=== PATIENT | male | born 1995 | race American Indian/Alaskan Native ===

== ENCOUNTER 2020-05-18 00:34 | Emergency (ER) | payer SELFPAY | END 2020-05-18 01:00 | disposition left against medical advice (07) | LOC: ED 00:34 | DX: R41.82 Altered mental status, unspecified (principal); Z53.21 Procedure and treatment not carried out due to patient leaving prior to being seen by health care provider ==

== ENCOUNTER 2021-08-07 16:15 | Emergency (ER) | payer SELFPAY ==
--- NOTE | 2021-08-07 18:47 | Emergency Department Report ---
ED Psych HPI - General Chief Complaint: Psych Stated Complaint: ITCHING/JUMPING Time Seen by Provider: 08/07/21 17:53 Source: patient Mode of arrival: Ambulatory - History of Present Illness Initial Comments: Chief complaint: "My father brought me. My skin is crawling." HPI: This is a 25-year-old male with history of bipolar disorder, schizophrenia who presents with auditory and tactile hallucinations. For the past several days he has heard voices. He feels as if something some object or some creatures are crawling all over him. He reports having a seizure 2 days ago. Seizure was unwitnessed. He is unable to describe circumstances of the seizure. Next He has not been on medication for bipolar disorder schizophrenia. He denies recreational drug use. He denies suicidal or homicidal ideation. MD Complaint: other (Auditory and tactile hallucinations) -: days(s) (Several days) Associated Psychiatric Symptoms: racing thoughts History of same: Yes Quality: constant Improves With: none Worsens With: none Context: not taking psychiatric Associated Symptoms: denies other symptoms Treatments Prior to Arrival: none - Related Data Allergies Allergy/AdvReac Type Severity Reaction Status Date / Time No Known Allergies Allergy Verified 08/07/21 17:17 ED Review of Systems ROS: Stated complaint: ITCHING/JUMPING Other details as noted in HPI Comment: All other systems reviewed and negative Constitutional: denies: chills, fever, malaise Respiratory: denies: cough, shortness of breath Cardiovascular: denies: chest pain Gastrointestinal: denies: abdominal pain, nausea, vomiting Psychiatric: auditory hallucinations. denies: homicidal thoughts, suicidal thoughts ED Past Medical Hx - Past Medical History Previous Medical History?: Yes Hx Psychiatric Treatment: (bipolar, schizo) - Surgical History Past Surgical History?: No - Social History Smoking Status: Current Every Day Smoker Substance Use Type: None ED Physical Exam - General Limitations: No Limitations General appearance: alert, in no apparent distress - Head Head exam: Present: atraumatic, normocephalic - Eye Eye exam: Present: normal appearance - ENT ENT exam: Present: mucous membranes moist - Neck Neck exam: Present: normal inspection, full ROM - Respiratory Respiratory exam: Present: normal lung sounds bilaterally. Absent: respiratory distress, wheezes, rales, rhonchi - Cardiovascular Cardiovascular Exam: Present: regular rate, normal rhythm, normal heart sounds. Absent: systolic murmur, diastolic murmur, rubs, gallop - GI/Abdominal GI/Abdominal exam: Present: soft, normal bowel sounds. Absent: distended, tenderness, guarding, rebound - Rectal Rectal exam: Present: deferred - Extremities Exam Extremities exam: Present: normal inspection - Back Exam Back exam: Present: normal inspection - Neurological Exam Neurological exam: Present: alert, oriented X3 - Psychiatric Psychiatric exam: Present: depressed, flat affect - Skin Skin exam: Present: warm, dry, intact, normal color. Absent: rash ED Course Vital Signs 08/07/21 08/07/21 17:12 17:15 Temperature 97.9 F Pulse Rate 95 H 81 Respiratory 16 Rate Blood Pressure 117/84 O2 Sat by Pulse 96 98 Oximetry ED Medical Decision Making - Lab Data Result diagrams: 08/07/21 18:19 08/07/21 18:19 Laboratory Results - last 24 hr 08/07/21 08/07/21 08/07/21 18:19 18:19 18:19 WBC 5.8 RBC 5.22 H Hgb 16.8 H Hct 50.1 H MCV 96 H MCH 32 MCHC 33 RDW 13.8 Plt Count 344 Lymph % (Auto) 29.7 [place] % (Auto) 6.3 Eos % (Auto) 1.1 Baso % (Auto) 0.8 Lymph # (Auto) 1.7 [place] # (Auto) 0.4 Eos # (Auto) 0.1 Baso # (Auto) 0.0 Seg Neutrophils % 62.1 Seg Neutrophils # 3.6 Sodium 140 Potassium 4.0 Chloride 102.7 Carbon Dioxide 18 L Anion Gap 23 BUN 10 Creatinine 0.7 L Estimated GFR > 60 BUN/Creatinine Ratio 14 Glucose 84 Calcium 9.8 Total Bilirubin 0.30 AST 38 ALT 36 Alkaline Phosphatase 85 Total Protein 8.4 H Albumin 5.0 Albumin/Globulin Ratio 1.5 Urine Color Urine Turbidity Urine pH Ur Specific [place] Urine Protein Urine Glucose (UA) Urine Ketones Urine Blood Urine Nitrite Urine Bilirubin Urine Urobilinogen Ur Leukocyte Esterase Urine WBC (Auto) Urine RBC (Auto) U Epithel Cells (Auto) Salicylates < 0.3 L Urine Opiates Screen Urine Methadone Screen Acetaminophen Ur Barbiturates Screen Ur Phencyclidine Scrn Ur Amphetamines Screen U Benzodiazepines Scrn Urine Cocaine Screen U Marijuana (THC) Screen Drugs of Abuse Note Plasma/Serum Alcohol 08/07/21 08/07/21 08/07/21 18:19 18:19 Unknown WBC RBC Hgb Hct MCV MCH MCHC RDW Plt Count Lymph % (Auto) [place] % (Auto) Eos % (Auto) Baso % (Auto) Lymph # (Auto) [place] # (Auto) Eos # (Auto) Baso # (Auto) Seg Neutrophils % Seg Neutrophils # Sodium Potassium Chloride Carbon Dioxide Anion Gap BUN Creatinine Estimated GFR BUN/Creatinine Ratio Glucose Calcium Total Bilirubin AST ALT Alkaline Phosphatase Total Protein Albumin Albumin/Globulin Ratio Urine Color Straw Urine Turbidity Clear Urine pH 5.0 Ur Specific [place] 1.004 Urine Protein <15 mg/dl Urine Glucose (UA) Neg Urine Ketones Neg Urine Blood Mod Urine Nitrite Neg Urine Bilirubin Neg Urine Urobilinogen < 2.0 Ur Leukocyte Esterase Neg Urine WBC (Auto) 1.0 Urine RBC (Auto) 2.0 U Epithel Cells (Auto) 1.0 Salicylates Urine Opiates Screen Urine Methadone Screen Acetaminophen 5.0 L Ur Barbiturates Screen Ur Phencyclidine Scrn Ur Amphetamines Screen U Benzodiazepines Scrn Urine Cocaine Screen U Marijuana (THC) Screen Drugs of Abuse Note Plasma/Serum Alcohol 0.20 H 08/07/21 Unknown WBC RBC Hgb Hct MCV MCH MCHC RDW Plt Count Lymph % (Auto) [place] % (Auto) Eos % (Auto) Baso % (Auto) Lymph # (Auto) [place] # (Auto) Eos # (Auto) Baso # (Auto) Seg Neutrophils % Seg Neutrophils # Sodium Potassium Chloride Carbon Dioxide Anion Gap BUN Creatinine Estimated GFR BUN/Creatinine Ratio Glucose Calcium Total Bilirubin AST ALT Alkaline Phosphatase Total Protein Albumin Albumin/Globulin Ratio Urine Color Urine Turbidity Urine pH Ur Specific [place] Urine Protein Urine Glucose (UA) Urine Ketones Urine Blood Urine Nitrite Urine Bilirubin Urine Urobilinogen Ur Leukocyte Esterase Urine WBC (Auto) Urine RBC (Auto) U Epithel Cells (Auto) Salicylates Urine Opiates Screen Negative Urine Methadone Screen Negative Acetaminophen Ur Barbiturates Screen Negative Ur Phencyclidine Scrn Negative Ur Amphetamines Screen Negative U Benzodiazepines Scrn Negative Urine Cocaine Screen Negative U Marijuana (THC) Screen Negative Drugs of Abuse Note Disclamer Plasma/Serum Alcohol - Medical Decision Making This is 25-year-old male history of bipolar disorder, schizophrenia who presents with auditory and tactile hallucinations. He denies suicidal homicidal ideation. 1. Acute psychosis: He is medically clear for psychiatric care. Awaiting treatment recommendations by psychiatric team. 2. Reported seizure: No previous history of seizure. Patient is currently neurologic intact. Low risk for PE. Must consider syncope. PERC negative. No evidence of traumatic injury. No indication of cardiac structural disease. No further evaluation required at this time. Vital signs are stable. 3. Elevated blood alcohol level. Patient alert and oriented x4. Stable gait. No indication of intoxication. No tachycardia or tremors to indicate withdrawal. Must consider alcohol dependence with reported seizure. CIWA score ordered. CBC CMP serum toxicology urinalysis urine tox screen otherwise unremarkable Critical care attestation.: If time is entered above; I have spent that time in minutes in the direct care of this critically ill patient, excluding procedure time. ED Disposition Clinical Impression: Acute psychosis, Bipolar disorder, Schizophrenia Disposition: 30 STILL A PATIENT Is pt being admited?: No Does the pt Need Aspirin: No Condition: Stable Referrals: PRIMARY CARE, [Primary Care Provider] - 3-5 Days
[2021-08-07 19:13] LABS: Alanine Aminotransferase 36 units/L (7-56); Blood Urea Nitrogen 10 mg/dL (9-20); Calcium 9.8 mg/dL (8.4-10.2); Hemolysis Index 20
[2021-08-07 19:19] LABS: BUN/Creatinine Ratio 14; Basophils % (Auto) 0.8 % (0.0-1.8); Eosinophils # (Auto) 0.1 K/mm3 (0.0-0.4); Eosinophils % (Auto) 1.1 % (0.0-4.3); Hematocrit 50.1 % (35.5-45.6); Hemoglobin 16.8 gm/dl (11.8-15.2); Lymphocytes # (Auto) 1.7 K/mm3 (1.2-5.4); Lymphocytes % (Auto) 29.7 % (13.4-35.0); Mean Corpuscular HGB Conc 33 % (32-34); Mean Corpuscular Volume 96 fl (84-94); Monocytes # (Auto) 0.4 K/mm3 (0.0-0.8); Monocytes % (Auto) 6.3 % (0.0-7.3); Platelet Count 344 K/mm3 (140-440); Red Blood Count 5.22 M/mm3 (3.65-5.03); Red Cell Distribution Width 13.8 % (13.2-15.2)
[2021-08-07 20:10] LABS: Bilirubin,Urine NEG (Negative); Blood,Urine MOD (Negative); Color,Urine Straw (Yellow); Protein,Urine <15 mg/dL mg/dL (Negative); Urobilinogen,Urine < 2.0 mg/dL (<2.0)
[2021-08-07 20:15] LABS: Amphetamine Screen,Urine Negative; Benzodiazepines Screen,Urine Negative; Cannabinoid Screen,Urine Negative; Cocaine Screen,Urine Negative; Methadone Screen,Urine Negative; Opiate Screen,Urine Negative
[2021-08-07] MEDS ORDERED: chlordiazePOXIDE 25 MG CAP PO PRN (21:42)
--- NOTE | 2021-08-08 10:51 | Consultation ---
History of Present Illness - Reason for Consult Consult date: 08/08/21 Reason for consult: tactile hallucinations - History of Present Psychiatric Illness The patient was seen today. He is a/ o x 3. He is calm and cooperative. He is polite. He says "better" when I ask him how he is feeling. The patient says he had a seizure and his skin was crawling. He denies feeling this at present. He says he has a history of bipolar and schizophrenia. The patient says "but I've been off of meds for about 2 years and I was fine." He says he lives with his father. 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 The patient denies any illicit drug use, alcohol or nicotine. He denies SI/HI. REVIEW OF SYSTEMS Constitutional: Negative for weight loss ENT: Negative for stridor Respiratory: Negative for cough or hemoptysis All other systems reviewed and are negative MENTAL STATUS EXAMINATION General Appearance and Behavior: Age appropriate, good hygiene, wearing appropriate clothes. calm, cooperative, polite Cooperation: Cooperative Psychomotor Behavior: Psychomotor normal Mood: better Affect and affective range: congruent with stated mood Thought Process: goal oriented Thought Content: None Speech: Normal tone and pace Suicidal Ideation: Denies Homicidal Ideation: Denies Hallucinations: Denies Delusions: Denies Impulse Control: Limited Insight and Judgment: Limited insight and fair judgment Memory: Limited Attention: distracted Orientation: a/o x 3 Assessment (1) Hx of bipolar and schizophrenia Current Visit: Yes Status: Acute Treatment Plan No meds prescribed at this time Medical: Per primary Disposition: Do not recommend acute psychiatric inpatient treatment Will sign off. Thanks Case staffed with Dr. Clarke Medications and Allergies Allergies Allergy/AdvReac Type Severity Reaction Status Date / Time No Known Allergies Allergy Verified 08/07/21 17:17 Active Meds: Active Medications Chlordiazepoxide HCl (Chlordiazepoxide 25 Mg Cap) 50 mg PO Q1HR PRN PRN Reason: CIWA-Ar 8-15 Mental Status Exam - Vital signs Last Vital Signs Temp 98.8 F 08/08/21 07:34 Pulse 65 08/08/21 07:34 Resp 15 08/08/21 07:34 BP 108/60 08/08/21 07:34 Pulse Ox 97 08/08/21 07:34 Results Result Diagrams: 08/07/21 18:19 08/07/21 18:19 Abnormal lab results 08/07/21 08/07/21 08/07/21 Range/Units 18:19 18:19 18:19 RBC 5.22 H (3.65-5.03) M/mm3 Hgb 16.8 H (11.8-15.2) gm/dl Hct 50.1 H (35.5-45.6) % MCV 96 H (84-94) fl Carbon Dioxide 18 L (22-30) mmol/L Creatinine 0.7 L (0.8-1.3) mg/dL Total Protein 8.4 H (6.3-8.2) g/dL Salicylates < 0.3 L (2.8-20.0) mg/dL Acetaminophen (10.0-30.0) ug/mL Plasma/Serum Alcohol (0-0.07) % 08/07/21 08/07/21 Range/Units 18:19 18:19 RBC (3.65-5.03) M/mm3 Hgb (11.8-15.2) gm/dl Hct (35.5-45.6) % MCV (84-94) fl Carbon Dioxide (22-30) mmol/L Creatinine (0.8-1.3) mg/dL Total Protein (6.3-8.2) g/dL Salicylates (2.8-20.0) mg/dL Acetaminophen 5.0 L (10.0-30.0) ug/mL Plasma/Serum Alcohol 0.20 H (0-0.07) % All other labs normal.
[2021-08-08 11:49] VITALS: BP 112/70
== END 2021-08-08 11:49 | disposition still patient (30) ==
LOC: ED 16:15
DX: F31.9 Bipolar disorder, unspecified (principal); F20.9 Schizophrenia, unspecified; F17.200 Nicotine dependence, unspecified, uncomplicated; Z79.899 Other long term (current) drug therapy; Z20.822 Contact with and (suspected) exposure to COVID-19
CPT/HCPCS: 36415; 80053; 80307; 81001; 85025; 99283; U0003; 80320; G0480